=== PATIENT | female | born 1945 ===

== ENCOUNTER 2017-02-05 15:31 | Emergency (ER) | payer MEDICARE ==
[2017-02-05 15:47] VITALS: BP 151/75; PULSE 63; RESP 20; TEMP 97.9; O2SAT 100
[2017-02-05 16:30] LABS: RBC URINE 22 /hpf (0-3); URINE BILIRUBIN NEGATIVE (NEGATIVE); URINE BLOOD 2+ (NEGATIVE); URINE COLOR Straw (YELLOW); URINE GLUCOSE (UA) NORMAL (Normal); URINE KETONE NEGATIVE (NEGATIVE); URINE LEUKOCYTE ESTERASE TRACE Leu/uL (Negative); URINE PROTEIN NEGATIVE (NEGATIVE); URINE UROBILINOGEN NORMAL mg/dL (0.2-1.0); WBC URINE 24 /hpf (0-5)
--- NOTE | 2017-02-05 17:44 | C.PDOC ---
History Of Present Illness 71 year old patient presents to the ED complaining of dysuria and urine frequency for the past 3 days. Patient denies any history of UTI. Patient also denies fever, nausea, vomiting, diarrhea, or abdominal pain. Time Seen by Provider: 02/05/17 17:38 Chief Complaint (Nursing): Female Genitourinary History Per: Patient History/Exam Limitations: no limitations Onset/Duration Of Symptoms: Days (3) Current Symptoms Are (Timing): Still Present Severity: Mild Pain Scale Rating Of: 3 Quality Of Discomfort: "Pain" Associated Symptoms: Urinary Symptoms Alleviating Factors: None Recent travel outside of the [place]: No Abnormal Vaginal Bleeding: No Past Medical History Reviewed: Historical Data, Nursing Documentation, Vital Signs Vital Signs: Last Vital Signs Temp 97.9 F 02/05/17 15:40 Pulse 63 02/05/17 15:40 Resp 20 02/05/17 15:40 BP 151/75 H 02/05/17 15:40 Pulse Ox 100 02/05/17 18:23 - Medical History PMH: Hypercholesterolemia Family History: States: Unknown Family Hx - Social History Hx Alcohol Use: No Hx Substance Use: No - Immunization History Hx Tetanus Toxoid Vaccination: Yes Hx Influenza Vaccination: Yes Hx Pneumococcal Vaccination: Yes Review Of Systems Except As Marked, All Systems Reviewed And Found Negative. Constitutional: Negative for: Fever Gastrointestinal: Negative for: Nausea, Vomiting, Abdominal Pain, Diarrhea Genitourinary: Positive for: Dysuria, Frequency (urinary) Physical Exam - Physical Exam Appears: Non-toxic, No Acute Distress Skin: Warm, Dry Head: Atraumatic, Normacephalic Neck: Normal ROM, Supple Chest: Symmetrical Cardiovascular: Rhythm Regular Respiratory: No Accessory Muscle Use Gastrointestinal/Abdominal: Soft, No Tenderness, No Guarding, No Rebound Back: Normal Inspection, No CVA Tenderness Extremity: Normal ROM Neurological/Psych: Oriented x3 Gait: Steady ED Course And Treatment - Laboratory Results Lab Interpretation: Abnormal (UA 22 wbc's) O2 Sat by Pulse Oximetry: 100 (RA) Pulse Ox Interpretation: Normal Progress Note: pyridium, macrobid PO Reevaluation Time: 17:44 Reassessment Condition: Improved Medical Decision Making Medical Decision Making: Mild UTI Disposition Doctor Will See Patient In The: Office Counseled Patient/Family Regarding: Studies Performed, Diagnosis - Disposition Referrals: [facility] [Outside] [facility] [Outside] Disposition: HOME/ ROUTINE Disposition Time: 17:44 Condition: GOOD Additional Instructions: sigue Macrobid 100 mg (antibiotico) 2 veces al roly para cumplir 3 roe entero Pyridium 100 mg (para dolor de la vejiga) 1 tableta 3 veces al roly rei necessario Sigue con [facility] rei necessario. Prescriptions: Nitrofurantoin Macrocrystals [Macrobid] 1 cap PO BID #5 cap Phenazopyridine HCl [Pyridium] 100 mg PO TID PRN #6 tablet PRN Reason: dysuria Instructions: Urinary Tract Infection in Women (ED) Print Language: [place] - Clinical Impression Clinical Impression: UTI (urinary tract infection) - Scribe Statement The provider has reviewed the documentation as recorded by the Scribe Liliana May Provider Attestation: All medical record entries made by the Scribe were at my direction and personally dictated by me. I have reviewed the chart and agree that the record accurately reflects my personal performance of the history, physical exam, medical decision making, and the department course for this patient. I have also personally directed, reviewed, and agree with the discharge instructions and disposition.
== END 2017-02-05 17:58 | disposition home or self-care (01) ==
LOC: C.ER 15:31
DX: N39.0 Urinary tract infection, site not specified (principal)